=== PATIENT | female | born 1940 | race Caucasian/White ===

== ENCOUNTER 2019-04-19 15:21 | Emergency (ER) | payer OTHER ==
--- OUTSIDE RECORDS SUMMARY | 2019-04-19 15:23 | XMS REPORT | Clinical Summary ---
:1940 Author Organization [facility] [employer] Address [address] [place] [address] Care Team Providers Name Role Phone Landon Ye MD Primary Care Provider Allergies Active Allergy Reactions Severity Noted Date Comments Codeine Itching 02/23/2017 Penicillins Palpitations Low 02/23/2017 Medications Medication Sig Dispensed Refills Start Date End Date Status RESTASIS 0.05 % Administer 2 01/06/2017 Active ophthalmic emulsion drops to both eyes 2 (two) times a day. Patient instills 2 gtts both eyes 2-3 times daily escitalopram (LEXAPRO) 10 Take 10 mg by 1 12/07/2016 Active MG tablet mouth daily. hydroCHLOROthiazide Take 25 mg by 0 12/18/2016 Active (HYDRODIURIL) 25 MG mouth daily. tablet latanoprost (XALATAN) Administer 1 01/17/2017 Active 0.005 % ophthalmic drop to both solution eyes every evening. levothyroxine (SYNTHROID, Take 100 mcg by 1 02/04/2017 Active LEVOXYL) 100 mcg tablet mouth every morning. losartan (COZAAR) 50 MG Take 50 mg by 3 01/15/2017 Active tablet mouth daily. metFORMIN XR Take 500 mg by 1 01/27/2017 Active (GLUCOPHAGE-XR) 500 mg 24 mouth 2 (two) hr tablet times a day. metoprolol tartrate Take 25 mg by 3 12/27/2016 Active (LOPRESSOR) 25 mg tablet mouth 2 (two) times a day. omeprazole (PriLOSEC) 20 Take 20 mg by 2 01/01/2017 Active MG capsule mouth daily. traMADol (ULTRAM) 50 mg Take 50 mg by 1 01/15/2017 Active tablet mouth 3 (three) times a day. naproxen sodium (ALEVE) Take 2 capsules 0 Active 220 mg capsule by mouth 2 (two) times a day. MULTIVITAMIN ORAL Take 1 tablet by 0 Active mouth daily. magnesium 250 mg tablet Take 1 tablet by 0 Active mouth daily. aspirin (ECOTRIN) 81 MG Take 81 mg by 0 Active enteric coated tablet mouth daily. potassium gluconate 595 Take 1 tablet by 0 Active mg (99 mg) tablet mouth 2 (two) times a day. methocarbamol Take 1 tablet 40 tablet 3 02/23/2017 Active (ROBAXIN-750) 750 MG every 6 hours as tablet needed for spasms Active Problems Problem Noted Date Lumbar stenosis 02/23/2017 Social History Tobacco Use Types Packs/Day Years Used Date Former Smoker Cigarettes 0.25 10 Quit: 2005 Alcohol Use Drinks/Week oz/Week Comments No Sex Assigned at Date Recorded Not on file Job Start Date Occupation Industry Not on file Not on file Not on file Travel History Travel Start Travel End No recent travel history available. Last Filed Vital Signs Not on file Plan of Treatment Health Maintenance Due Date Last Done Comments SHINGLES VACCINES (#1) 1991 65+ PNEUMOCOCCAL VACCINE (1 of 2 - PCV13) 2006 INFLUENZA VACCINE 03/08/2019 Implants Implanted Type Area Pipe And Tank Fabricator Device Shelf Model / Identifier Expiration Serial / Date Lot Kit Mitch Camacho Lmbr Tprd 8ml Xxl Infuse - [id number] Human Tissue Anterior: MEDTRONIC 09/08/2018 [id number] / Implanted: Qty: 1 on 02/25/2017 by Saurabh Botello MD at [facility] Implants Spine SPINAL AND / Lumbar BIOLOGICS Description:Anterior L5-S1 Chip Canc Allograft Leader [facility] 15cc 0.1-4mm - [id number] Human Tissue Anterior: MUSCULOSKELETAL 09/23/2019 [id number] / Implanted: Qty: 1 on 02/25/2017 by Saurabh Botello MD at [facility] Implants Spine Lumbar TRANSPLANT / FOUNDATION [id number] Description:Anterior L5-S1 Spacer [id number] Prmtr Lg 12deg 16mm - [id number] IPM IMPLANT Anterior: MEDTRONIC 05/17/2019 [id number] / Implanted: Qty: 1 on 02/25/2017 by Saurabh Botello MD at [facility] DEVICES Spine Lumbar SOFAMOR DANEK / [id number] Sovereign Fa Screw [id number] 5.5 X 25mm - [id number] IPM IMPLANT Anterior: MEDTRONIC [id number] / Implanted: Qty: 1 on 02/25/2017 by Saurabh Botello MD at [facility] DEVICES Spine Lumbar SOFAMOR DANEK / VENDOR LOT NA 5.5 Ti Shubham Fix 6x50mm, Viper Plus - [id number] IPM IMPLANT Posterior: DEPUY SYNTHES [id number] / Implanted: Qty: 1 on 02/25/2017 by Saurabh Botello MD at [facility] DEVICES Spine Lumbar SPINE / LOT NA 5.5 Ti Shubham Fix 6x50mm, Viper Plus - [id number] IPM IMPLANT Posterior: DEPUY SYNTHES [id number] / Implanted: Qty: 1 on 02/25/2017 by Saurabh Botello MD at [facility] DEVICES Spine Lumbar SPINE / LOT NA 5.5 Ti Shubham Fix 6x50mm, Viper Plus - [id number] IPM IMPLANT Posterior: DEPUY SYNTHES [id number] / Implanted: Qty: 1 on 02/25/2017 by Saurabh Botello MD at [facility] DEVICES Spine Lumbar SPINE / LOT NA Washer Bone Grft Ti 17mm - [id number] Orthopedic Anterior: MEDTRONIC [id number] / Implanted: Qty: 1 on 02/25/2017 by Saurabh Botello MD at [facility] Trauma Implants Spine Lumbar SPINAL AND / BIOLOGICS VENDOR LOT NA Screw Spinal Set Si Ti Expedium - [id number] Spinal Implants Posterior: DEPUY SPINE [id number] / Implanted: Qty: 1 on 02/25/2017 by Saurabh Botello MD at [facility] Spine Lumbar / LOT NA Screw Spinal Set Si Ti Expedium - [id number] Spinal Implants Posterior: DEPUY SPINE [id number] / Implanted: Qty: 1 on 02/25/2017 by Saurabh Botello MD at [facility] Spine Lumbar / LOT NA Screw Spinal Set Si Ti Expedium - [id number] Spinal Implants Posterior: DEPUY SPINE [id number] / Implanted: Qty: 1 on 02/25/2017 by Saurabh Botello MD at [facility] Spine Lumbar / LOT NA Screw Spinal Set Si Ti Expedium - [id number] Spinal Implants Posterior: DEPUY SPINE [id number] / Implanted: Qty: 1 on 02/25/2017 by Saurabh Botello MD at [facility] Spine Lumbar / LOT NA Expedium Ti, Pre-Lordosed Theo W/Line 35mm - [id number] Posterior: DEPUY SYNTHES [id number] / Implanted: Qty: 1 on 02/25/2017 by Saurabh Botello MD at [facility] Spine Lumbar SPINE / LOT NA Expedium Ti, Pre-Lordosed Theo W/Line 35mm - [id number] Posterior: DEPUY SYNTHES [id number] / Implanted: Qty: 1 on 02/25/2017 by Saurabh Botello MD at [facility] Spine Lumbar SPINE / LOT NA 5.5 Ti Shubham Fix 6x40mm, Viper Plus - [id number] Posterior: DEPUY SYNTHES [id number] / Implanted: Qty: 1 on 02/25/2017 by Saurabh Botello MD at [facility] Spine Lumbar SPINE / LOT NA Results Not on fileafter 04/18/2018 Advance Directives For more information, please contact: [phone] Type Date Recorded Patient Line Assembler Aircraft Explanation Advance Directives, Living Will 02/23/2017 8:36 AM and Medical Power of Manager Oncology
--- NOTE | 2019-04-19 18:08 | ER ---
Nurse's Notes [facility] Name: Tiffany Armas Age: 78 yrs Sex: Female : 1940 Arrival Date: 04/19/2019 Time: 15:23 Bed 20 Private MD: Diagnosis: Nondisplaced unspecified fracture of left lesser toe(s) Presentation: 04/19 15:41 Presenting complaint: Patient states: woke up this morning and noticed some iw bruising/discoloration to left toes, denies injury, toes feels numb and tingly, has previous surgery on foot in 2010. Transition of care: patient was not received from another setting of care. Onset of symptoms was April 19, 2019. Risk Assessment: Do you want to hurt yourself or someone else? Patient reports no desire to harm self or others. Initial Sepsis Screen: Does the patient meet any 2 criteria? No. Patient's initial sepsis screen is negative. Does the patient have a suspected source of infection? No. Patient's initial sepsis screen is negative. Care prior to arrival: None. 15:41 Method Of Arrival: Ambulatory iw 15:41 Acuity: JESSICA 3 iw Historical: - Allergies: 15:44 Codeine; iw 15:44 PENICILLINS; iw - Home Meds: 15:47 Estarylla 0.25-35 mg-mcg oral tab 1 tab once daily [Active]; venlafaxine 75 mg oral iw cp24 1 cap once daily [Active]; omeprazole 40 mg Oral cpDR 1 cap once daily [Active]; levothyroxine 112 mcg tab 1 tab once daily [Active]; fluoxetine 20 mg Oral cap 1 cap once daily [Active]; Triamcinolone Acetonide Topical [Active]; Systane Vitamin [phone] oc-qt-zb-unit oral cap [Active]; - PMHx: 15:47 Diabetes - NIDDM; iw - PSHx: 15:47 elbow; Thyroidectomy; back; toe-left; iw - Immunization history:: Adult Immunizations up to date. - Social history:: Smoking status: Patient/guardian denies using tobacco, Patient/guardian denies using alcohol, street drugs, The patient lives with family. - Ebola Screening: : Patient negative for fever greater than or equal to 101.5 degrees Fahrenheit, and additional compatible Ebola Virus Disease symptoms Patient denies exposure to infectious person Patient denies travel to an Ebola-affected area in the 21 days before illness onset No symptoms or risks identified at this time. - Family history:: not pertinent. Screenin:40 Abuse screen: Denies threats or abuse. Denies injuries from another. Nutritional ca1 screening: No deficits noted. Tuberculosis screening: No symptoms or risk factors identified. Fall Risk None identified. Assessment: 16:40 General: Appears in no apparent distress. comfortable, Behavior is calm, cooperative, ca1 appropriate for age. Pain: Complains of pain in left second toe, left third toe and left fourth toe Pain currently is 5 out of 10 on a pain scale. Pain began this morning. Neuro: Level of Consciousness is awake, alert, obeys commands, Oriented to person, place, time, situation. Cardiovascular: Heart tones S1 S2 present Capillary refill < 3 seconds Patient's skin is warm and dry. Respiratory: Airway is patent Respiratory effort is even, unlabored, Respiratory pattern is regular, symmetrical, Breath sounds are clear bilaterally. GI: Abdomen is flat, non-distended, Bowel sounds present X 4 quads. Abd is soft and non tender X 4 quads. : No deficits noted. No signs and/or symptoms were reported regarding the genitourinary system. EENT: No deficits noted. No signs and/or symptoms were reported regarding the EENT system. Derm: Skin is intact, is healthy with good turgor, Skin is pink, warm \T\ dry. Bruising that is dark purple, on left second toe, left third toe and left fourth toe. Musculoskeletal: Circulation, motion, and sensation intact. Capillary refill < 3 seconds, Range of motion: intact in all extremities. 17:30 Reassessment: Patient appears in no apparent distress at this time. Patient and/or ca1 family updated on plan of care and expected duration. Pain level reassessed. Patient is alert, oriented x 3, equal unlabored respirations, skin warm/dry/pink. 18:34 Reassessment: Patient appears in no apparent distress at this time. Patient is alert, ca1 oriented x 3, equal unlabored respirations, skin warm/dry/pink. Vital Signs: 15:47 BP 148 / 72; Pulse 74; Resp 16; Temp 98.2; Pulse Ox 97% on R/A; Weight 82.55 kg; Height iw 5 ft. 8 in. (172.72 cm); 18:34 BP 139 / 76; Pulse 81; Resp 18 S; Pulse Ox 98% on R/A; ca1 15:47 Body Mass Index 27.67 (82.55 kg, 172.72 cm) iw ED Course: 15:23 Patient arrived in ED. rg4 15:43 Triage completed. iw 15:44 Arm band placed on. iw 16:32 Ronald Wagner MD is Attending Physician. ma2 16:32 Linda Waters, RN is Primary Nurse. ca1 16:40 Patient has correct armband on for positive identification. Bed in low position. Call ca1 light in reach. Side rails up X 1. Pulse ox on. NIBP on. Warm blanket given. 16:40 No provider procedures requiring assistance completed. Patient did not have IV access ca1 during this emergency room visit. 18:06 Imer Alaniz MD is Referral Physician. ma2 18:09 XRAY Foot LEFT 3 View In Process Unspecified. EDMS Administered Medications: No medications were administered Outcome: 18:07 Discharge ordered by . ma2 18:34 Discharged to home ambulatory, with family. ca1 18:34 Condition: stable 18:34 Discharge instructions given to patient, Instructed on discharge instructions, follow up and referral plans. Demonstrated understanding of instructions, follow-up care. 18:35 Patient left the ED. ca1 Signatures: Dispatcher [employer] EDMS Bailee Salinas, RN Maira Kahn rg4 Ronald Wagner MD MD ma2 Acob, Cheryl, RN RN ca1
--- NOTE | 2019-04-19 18:09 | EDPHYS ---
Physician Documentation [facility] Name: Tiffany Armas Age: 78 yrs Sex: Female : 1940 Arrival Date: 04/19/2019 Time: 15:23 Bed 20 Private MD: ED Physician Ronald Wanger HPI: 04/19 17:11 This 78 yrs old Female presents to ER via Ambulatory with complaints of Toe ma2 Problem. 17:11 The patient presents with an abrasion, a contusion. The complaints affect the left ma2 foot. Onset: The symptoms/episode began/occurred suddenly, 3 day(s) ago. Associated signs and symptoms: Pertinent positives: echymosis, Pertinent negatives: numbness, swelling, tingling, vomiting, warmth, weakness. Severity of symptoms: At their worst the symptoms were very mild, in the emergency department the symptoms are unchanged. The patient has not experienced similar symptoms in the past. Historical: - Allergies: 15:44 Codeine; iw 15:44 PENICILLINS; iw - Home Meds: 15:47 Estarylla 0.25-35 mg-mcg oral tab 1 tab once daily [Active]; venlafaxine 75 mg oral iw cp24 1 cap once daily [Active]; omeprazole 40 mg Oral cpDR 1 cap once daily [Active]; levothyroxine 112 mcg tab 1 tab once daily [Active]; fluoxetine 20 mg Oral cap 1 cap once daily [Active]; Triamcinolone Acetonide Topical [Active]; Systane Vitamin [phone] hu-pt-wa-unit oral cap [Active]; - PMHx: 15:47 Diabetes - NIDDM; iw - PSHx: 15:47 elbow; Thyroidectomy; back; toe-left; iw - Immunization history:: Adult Immunizations up to date. - Social history:: Smoking status: Patient/guardian denies using tobacco, Patient/guardian denies using alcohol, street drugs, The patient lives with family. - Ebola Screening: : Patient negative for fever greater than or equal to 101.5 degrees Fahrenheit, and additional compatible Ebola Virus Disease symptoms Patient denies exposure to infectious person Patient denies travel to an Ebola-affected area in the 21 days before illness onset No symptoms or risks identified at this time. - Family history:: not pertinent. ROS: 17:11 MS/extremity: Positive for contusion, Negative for injury or acute deformity, abrasion, ma2 erythema, pain, paresthesias, rash, tenderness, warmth, acute changes. 17:11 Constitutional: Negative for fever, chills, and weight loss. 17:11 All other systems are negative. Exam: 17:11 Constitutional: This is a well developed, well nourished patient who is awake, alert, ma2 and in no acute distress. Cardiovascular: Regular rate and rhythm with a normal S1 and S2. No gallops, murmurs, or rubs. Normal PMI, no JVD. No pulse deficits. Respiratory: Lungs have equal breath sounds bilaterally, clear to auscultation and percussion. No rales, rhonchi or wheezes noted. No increased work of breathing, no retractions or nasal flaring. Abdomen/GI: Soft, non-tender, with normal bowel sounds. No distension or tympany. No guarding or rebound. No evidence of tenderness throughout. Back: No spinal tenderness. No costovertebral tenderness. Full range of motion. Skin: Warm, dry with normal turgor. Normal color with no rashes, no lesions, and no evidence of cellulitis. MS/ Extremity: she has echymosis over left 2nd toe, no deformity or ttp, no swelling of calf or thigh. otherwise, Pulses equal, no cyanosis. Neurovascular intact. Full, normal range of motion. Neuro: Awake and alert, GCS 15, oriented to person, place, time, and situation. Cranial nerves II-XII grossly intact. Motor strength 5/5 in all extremities. Sensory grossly intact. Cerebellar exam normal. Normal gait. Vital Signs: 15:47 BP 148 / 72; Pulse 74; Resp 16; Temp 98.2; Pulse Ox 97% on R/A; Weight 82.55 kg; Height iw 5 ft. 8 in. (172.72 cm); 18:34 BP 139 / 76; Pulse 81; Resp 18 S; Pulse Ox 98% on R/A; ca1 15:47 Body Mass Index 27.67 (82.55 kg, 172.72 cm) iw MDM: 16:32 Patient medically screened. ma2 17:11 Differential diagnosis: fracture, sprain, foreign body, arthritis. ma2 18:05 Data reviewed: vital signs, nurses notes. Counseling: I had a detailed discussion with abraham the patient and/or guardian regarding: the historical points, exam findings, and any diagnostic results supporting the discharge/admit diagnosis, the presence of at least one elevated blood pressure reading (>120/80) during this emergency department visit, the need for outpatient follow up. Response to treatment: the patient's symptoms have markedly improved after treatment. ED course: . 04/19 16:32 Order name: XRAY Foot LEFT 3 View ar2 04/19 18:08 Order name: Post-op shoe; Complete Time: 18:33 ma Administered Medications: No medications were administered Disposition: 04/19/19 18:07 Discharged to Home. Impression: Nondisplaced unspecified fracture of left lesser toe(s). - Condition is Stable. - Discharge Instructions: Toe Fracture, [id number]. - Medication Reconciliation Form, Thank You Letter, Antibiotic Education, Prescription Opioid Use form. - Follow up: Imer Alaniz MD; When: Tomorrow; Reason: Continuance of care. Signatures: Dispatcher [employer] Bailee Plascencia RN RN iw Ronald Wagner MD MD ar2 Linda Waters RN RN ca1 Corrections: (The following items were deleted from the chart) 18:35 18:07 04/19/2019 18:07 Discharged to Home. Impression: Nondisplaced unspecified ca1 fracture of left lesser toe(s). Condition is Stable. Forms are Medication Reconciliation Form, Thank You Letter, Antibiotic Education, Prescription Opioid Use. Follow up: Imer Alaniz; When: Tomorrow; Reason: Continuance of care. ma
--- NOTE | 2019-04-19 18:44 | RAD REPORT ---
EXAM DESCRIPTION: RAD - Foot Left 3 View - 04/19/2019 6:05 pm CLINICAL HISTORY: Left Foot pain FINDINGS: Bones are osteoporotic. Hallux valgus deformity is seen. Distal aspects of the second, third, fourth and fifth metatarsals appear to have been resected. The t hird, fourth and fifth proximal phalanges lie medial to the adjacent metatarsals. Presumably this is a normal postsurgical change. An acute subluxation could also have this appearance and should be braden elated with prior postsurgical x-rays
[2019-04-19 19:52] VITALS: TEMP 98.2
[2019-04-19 19:54] VITALS: BP 139/76; O2SAT 98
== END 2019-04-19 18:35 | disposition home or self-care (01) ==
LOC: ER 15:21
DX: S92.505A Nondisplaced unspecified fracture of left lesser toe(s), initial encounter for closed fracture (principal); X58.XXXA Exposure to other specified factors, initial encounter; Z88.6 Allergy status to analgesic agent; Z88.0 Allergy status to penicillin
CPT/HCPCS: 99283